=== PATIENT | female | born 1965 | race Caucasian/White ===

== ENCOUNTER 2021-07-30 10:35 | Emergency (ER) | payer OTHER ==
[2021-07-30 11:47] VITALS: BP 121/76; PULSE 87; TEMP 97.2; BMI 21.9
[2021-07-30] MEDS ORDERED: PANTOPRAZOLE SODIUM 40 MG VIAL IVPB ONE (12:56)
[2021-07-30] MEDS ORDERED: SODIUM CHLORIDE 1,000 ML IV STA (12:56)
[2021-07-30] MEDS ORDERED: PANTOPRAZOLE SODIUM 40 MG VIAL ONE (13:55)
[2021-07-30 14:53] LABS: URINE APPEARANCE CLEAR; URINE BILIRUBIN NEGATIVE (NEGATIVE); URINE COLOR YELLOW; URINE GLUCOSE (UA) NEGATIVE (NEGATIVE); URINE KETONE NEGATIVE (NEGATIVE); URINE LEUK ESTERASE NEGATIVE (NEGATIVE); URINE NITRITE NEGATIVE (NEGATIVE); URINE PROTEIN NEGATIVE (NEGATIVE); URINE UROBILINOGEN 0.2 mg/dL (0.2-1.0)
[2021-07-30 15:08] LABS: BASO % 1.1 % (0-2.0); HEMATOCRIT 41.5 % (32.4-45.2); HEMOGLOBIN 14.1 GM/dL (10.7-15.3); LYMPH % 32.7 % (8-40); MCH 31.7 pg (25.7-33.7); MCHC 34.1 g/dl (32.0-36.0); MEAN PLT VOLUME 10.4 fl (7.5-11.1); NEUT % 56.2 % (42.8-82.8); PLATELET COUNT 147 10^3/uL (134-434); RBC 4.46 M/mm3 (3.60-5.2); RDW 13.7 % (11.6-15.6); WHITE BLOOD COUNT 7.5 K/mm3 (4.0-10.0)
[2021-07-30 15:29] LABS: CHLORIDE 108 mmol/L (98-107); SODIUM 141 mmol/L (136-145)
[2021-07-30 15:32] LABS: ALBUMIN 3.8 g/dl (3.4-5.0); ANION GAP 5 MMOL/L (8-16); BLOOD UREA NITROGEN 13.7 mg/dL (7-18); CALCIUM 9.5 mg/dL (8.5-10.1); CO2 28 mmol/L (21-32); LIPASE 151 U/L (73-393)
[2021-07-30 15:33] LABS: GLUCOSE,RANDOM 77 mg/dL (74-106)
[2021-07-30 15:35] LABS: CREATININE 0.6 mg/dL (0.55-1.3); SGOT/AST 26 U/L (15-37); SGPT/ALT 32 U/L (13-61)
[2021-07-30 15:37] LABS: BILIRUBIN,TOTAL 0.4 mg/dL (0.2-1); TOT PROT 6.9 g/dl (6.4-8.2)
[2021-07-30 15:38] LABS: ALK PHOS 53 U/L (45-117)
[2021-07-30 15:50] LABS: INR 1.08 (0.83-1.09); PROTHROMBIN TIME (PATIENT) 12.4 SEC (9.7-13.0)
== END 2021-07-30 17:25 | disposition home or self-care (01) ==
LOC: JER 10:35
PROC: 3E033NZ Introduction of Analgesics, Hypnotics, Sedatives into Peripheral Vein, Percutaneous Approach (ICD-10-PCS; principal; 2021-07-30)
PROC: 3E0333Z Introduction of Anti-inflammatory into Peripheral Vein, Percutaneous Approach (ICD-10-PCS; 2021-07-30)
DX: R07.89 Other chest pain (principal)
CPT/HCPCS: 36415; 71046-TC-FY; 80053; 81003; 82550; 83690; 84484; 85025; 85610; 87086; 93005; 93010; 99284-25; C9803; U0003; U0005

== ENCOUNTER 2023-03-09 04:17 | Day surgery (SDC) | payer OTHER ==
[2023-03-02 14:39] VITALS: BMI 23.8
[2023-03-09 10:00] VITALS: BP 114/72; PULSE 82; RESP 16; TEMP 98
== END 2023-03-09 10:05 | disposition home or self-care (01) ==
LOC: JASU-ENDO 04:17
PROVIDERS: ATTEND Internal Medicine Gastroenterology
PROC: 0DBP8ZX Excision of Rectum, Via Natural or Artificial Opening Endoscopic, Diagnostic (ICD-10-PCS; 2023-03-09)
PROC: 0DBM8ZX Excision of Descending Colon, Via Natural or Artificial Opening Endoscopic, Diagnostic (ICD-10-PCS; principal; 2023-03-09 09:15)
DX: K52.9 Noninfective gastroenteritis and colitis, unspecified (principal); K63.5 Polyp of colon; K64.8 Other hemorrhoids; K57.30 Diverticulosis of large intestine without perforation or abscess without bleeding; Z86.010 Personal history of colon polyps
CPT/HCPCS: 88305-TC

== ENCOUNTER 2024-01-11 04:34 | Day surgery (SDC) | payer OTHER ==
[2024-01-05 10:43] VITALS: BMI 24.3
[2024-01-11 09:39] VITALS: TEMP 97.5
[2024-01-11 10:04] VITALS: RESP 18
[2024-01-11 10:17] VITALS: BP 116/71; PULSE 83
== END 2024-01-11 10:17 | disposition home or self-care (01) ==
LOC: JASU-ENDO 04:34
PROVIDERS: ATTEND Internal Medicine Gastroenterology
PROC: 0DB98ZX Excision of Duodenum, Via Natural or Artificial Opening Endoscopic, Diagnostic (ICD-10-PCS; 2024-01-11)
PROC: 0DB68ZX Excision of Stomach, Via Natural or Artificial Opening Endoscopic, Diagnostic (ICD-10-PCS; 2024-01-11)
PROC: 0DJD8ZZ Inspection of Lower Intestinal Tract, Via Natural or Artificial Opening Endoscopic (ICD-10-PCS; principal; 2024-01-11 09:10)
DX: K57.30 Diverticulosis of large intestine without perforation or abscess without bleeding (principal); K64.8 Other hemorrhoids; K29.50 Unspecified chronic gastritis without bleeding; Z87.19 Personal history of other diseases of the digestive system
CPT/HCPCS: 88305-TC; 88342-TC